=== PATIENT | female | born 1945 | race Caucasian/White ===

== ENCOUNTER 2018-12-12 12:24 | Observation (INO) | payer OTHER, BC ==
[2018-12-12 12:32] VITALS: BMI 22.7
--- NOTE | 2018-12-12 12:40 | EKG ---
Test Reason : Blood Pressure : / mmHG Vent. Rate : 062 BPM Atrial Rate : 062 BPM P-R Int : 162 ms QRS Dur : 090 ms QT Int : 376 ms P-R-T Axes : 026 057 053 degrees QTc Int : 381 ms NORMAL SINUS RHYTHM VOLTAGE CRITERIA FOR LEFT VENTRICULAR HYPERTROPHY ABNORMAL ECG Confirmed by MD CARMEN, CALIXTO ([id number]) on 12/12/2018 12:40:06 PM Referred By: Confirmed By:CALIXTO MORALES MD
--- NOTE | 2018-12-12 13:45 | PDOC ---
History of Present Illness - General Chief Complaint: Lightheaded Stated Complaint: SENT BY PCP Time Seen by Provider: 12/12/18 13:45 History Source: Patient Exam Limitations: No Limitations - History of Present Illness Initial Comments: 73 yo F w a pmh of HTN, HCL, Breast Ca s/p left mastectomy presents to the ER from [facility] because she has been having many high blood pressure readings and had an abnormal EKG at [facility]. here in the ER her EKG shows normal sinus with left ventricular hypertrophy changes. The patient's BP readings this morning have been 153/92 at 7 am, 160/92 at 9 am, and 157/86 at 10 am. She thinks this is abnormal for her. She has also been experiencing these dizzy spells for the past month which she describes as lightheadedness. She thinks they have been occurring more frequently of late. The patient also had a short transient episode of left neck discomfort when she checked into the ER which she is no longer experiencing. The patient endorses a tingling sensation in her left arm which she says began last night and has been on and off in frequency. PCP: Currently Dr. Wiseman at [facility] - switching over to Dr. bartlett at [facility] PSH: Left breast mastectomy Social Hx: Denies smoking, drinking, or other substance usage Allergies: NKDA, seasonal allergies to pollen Meds: Enalapril, atorvastatin, delma Past History - Past Medical History Allergies/Adverse Reactions: Allergies Allergy/AdvReac Type Severity Reaction Status Date / Time No Known Allergies Allergy Verified 12/12/18 12:31 Home Medications: Ambulatory Orders Atorvastatin Calcium [Lipitor] 20 mg PO HS 12/12/18 Enalapril Maleate [Vasotec] 20 mg PO DAILY 12/12/18 COPD: No HTN: Yes - Surgical History Cholecystectomy: No Lung Surgery: No - Immunization History Immunization Up to Date: No - Suicide/Smoking/Psychosocial Hx Smoking History: Never smoked Have you smoked in the past 12 months: No Information on smoking cessation initiated: No Hx Alcohol Use: No Drug/Substance Use Hx: No Review of Systems - Review of Systems Able to Perform ROS?: Yes Comments:: CONSTITUTIONAL: Absent: fever, no chills, no fatigue EYES: Absent: visual changes ENT: Absent: ear pain, no sore throat CARDIOVASCULAR: Absent: chest pain, no palpitations RESPIRATORY: Absent: cough, no SOB GI: Absent: abdominal pain, no nausea, no vomiting, no constipation, no diarrhea GENITOURINARY: Absent: dysuria, no frequency, no hematuria MUSKULOSKELETAL: Absent: back pain, no arthralgia, no myalgia SKIN: Absent: rash NEURO: Absent: headache *Physical Exam - Vital Signs Last Vital Signs Temp Pulse Resp BP Pulse Ox 98.2 F 74 16 122/56 L 96 12/12/18 12:28 12/12/18 12:28 12/12/18 12:28 12/12/18 12:28 12/12/18 12:28 - Physical Exam Comments: GENERAL: Well-appearing, well-nourished. No apparent distress. HEENT: Normocephalic, atraumatic. PERRL, EOM intact. CARDIOVASCULAR: Normal S1, S2. Regular rate and rhythm. PULMONARY: No evidence of respiratory distress. Lungs clear to auscultation bilaterally. No wheezing, rales or rhonchi. ABDOMEN: Soft, non-distended, non-tender. EXTREMITIES: 1 + edema in the ankles. Normal ROM in all four extremities. No gross deformities. SKIN: Warm, dry. No rash NEUROLOGICAL: No focal neurological deficits. ED Treatment Course - LABORATORY CBC & Chemistry Diagram: 12/12/18 14:18 12/12/18 14:18 - RADIOLOGY Radiograph Interpretation: Head CT: Scan of the head without intravenous contrast. There is gjkz-ew-nrszpcnf volume loss, ventricular dilatation and moderate to marked periventricular chronic microvascular ischemic disease changes, right more the left. No mass lesion , gross acute infarct or intracranial hemorrhage are identified. There is no shift of the midline structures.. The craniocervical junction appears unremarkable. Normal size pituitary gland. Visualized paranasal sinuses and mastoid air cells are well aerated. The calvarium is intact. Both orbits appear unremarkable IMPRESSION: Kcrz-vw-lnwjzeos volume with moderate to marked periventricular chronic microvascular ischemic disease changes, right more than left. No CT evidence of acute intracranial pathology is identified. Correlate clinically to determine further evaluation and follow-up. Medical Decision Making - Medical Decision Making 73 yo F w a pmh of HTN, HCL, Breast Ca s/p left mastectomy presents to the ER from [facility] because she has been having many high blood pressure readings and had an abnormal EKG at [facility]. here in the ER her EKG shows normal sinus with left ventricular hypertrophy changes. The patient's BP readings this morning have been 153/92 at 7 am, 160/92 at 9 am, and 157/86 at 10 am. She thinks this is abnormal for her. She has also been experiencing these dizzy spells for the past month which she describes as lightheadedness. She thinks they have been occurring more frequently of late. The patient also had a short transient episode of left neck discomfort when she checked into the ER which she is no longer experiencing. The patient endorses a tingling sensation in her left arm which she says began last night and has been on and off in frequency. VS: Diastolic hypotension, otherwise WNL. DDx IBNLT: CVA/TIA, ACS/ID, Arrhythmia, electrolyte/metabolic derangement, UTI. Plan: Labs, Urine, CXR, Head CT, IV hydration, re-assess. Labs and Urine: Unremarkable. CXR: Unremarkable Head CT: Scan of the head without intravenous contrast. There is mild-to- moderate volume loss, ventricular dilatation and moderate to marked periventricular chronic microvascular ischemic disease changes, right more the left. No mass lesion , gross acute infarct or intracranial hemorrhage are identified. There is no shift of the midline structures.. The craniocervical junction appears unremarkable. Normal size pituitary gland. Visualized paranasal sinuses and mastoid air cells are well aerated. The calvarium is intact. Both orbits appear unremarkable IMPRESSION: Hrvp-ny-mioblert volume with moderate to marked periventricular chronic microvascular ischemic disease changes, right more than left. No CT evidence of acute intracranial pathology is identified. Correlate clinically to determine further evaluation and follow-up. 12/12/18 16:41 Patient has likely been having chronic elevated BP and is starting to get end organ damage. Will admit to the hospital to have a more thorough cardio and neuro workup. *DC/Admit/Observation/Transfer Diagnosis at time of Disposition: Elevated blood pressure reading, Near syncope, LVH (left ventricular hypertrophy) - Discharge Dispostion Condition at time of disposition: Stable Decision to Admit order: Yes - Referrals - Patient Instructions - Post Discharge Activity
[2018-12-12] MEDS ORDERED: ASPIRIN 81 MG CHEWABLE TABLETS PO ONE (13:59)
[2018-12-12] MEDS ORDERED: SODIUM CHLORIDE 0.9% 500 ML INFUS.BAG IV ONE (14:03)
[2018-12-12 14:41] LABS: BASO % 0.9 % (0-2.0); HEMATOCRIT 42.3 % (32.4-45.2); HEMOGLOBIN 14.1 GM/dL (10.7-15.3); LYMPH % 27.7 % (8-40); MCH 30.7 pg (25.7-33.7); MCHC 33.3 g/dl (32.0-36.0); MEAN CELL VOLUME 92.3 fl (80-96); MEAN PLT VOLUME 7.1 fl (7.5-11.1); MONO % 4.8 % (3.8-10.2); NEUT % 64.6 % (42.8-82.8); PLATELET COUNT 240 K/MM3 (134-434); RBC 4.58 M/mm3 (3.60-5.2); RDW 13.3 % (11.6-15.6)
[2018-12-12 14:52] LABS: EPI CELLS 0.6 /HPF (0-5/HPF); PH,URINE 7.5 (5.0-8.0); URINE APPEARANCE CLEAR; URINE BACTERIA 75.2 /hpf (NEGATIVE); URINE BILIRUBIN NEGATIVE (NEGATIVE); URINE CASTS 0 /lpf (0-8); URINE COLOR YELLOW; URINE GLUCOSE (UA) NEGATIVE (NEGATIVE); URINE KETONE NEGATIVE (NEGATIVE); URINE LEUK ESTERASE TRACE (NEGATIVE); URINE NITRITE NEGATIVE (NEGATIVE); URINE PROTEIN NEGATIVE (NEGATIVE); URINE RBC 1 /hpf (0-4); URINE UROBILINOGEN 0.2 mg/dL (0.2-1.0); URINE WBC 2 /hpf (0-5)
[2018-12-12 14:53] LABS: INR 0.95 (0.83-1.09); PROTHROMBIN TIME (PATIENT) 11.2 SEC (9.7-13.0)
[2018-12-12 15:12] LABS: ALBUMIN 3.8 g/dl (3.4-5.0); ALK PHOS 42 U/L (45-117); ANION GAP 6 MMOL/L (8-16); BILIRUBIN,TOTAL 0.5 mg/dL (0.2-1); BLOOD UREA NITROGEN 12 mg/dL (7-18); CALCIUM 9.3 mg/dL (8.5-10.1); CHLORIDE 104 mmol/L (98-107); CO2 27 mmol/L (21-32); CREATININE 0.6 mg/dL (0.55-1.3); GLUCOSE,RANDOM 81 mg/dL (74-106); POTASSIUM 4.3 mmol/L (3.5-5.1); SGOT/AST 23 U/L (15-37); SGPT/ALT 24 U/L (13-61); SODIUM 137 mmol/L (136-145); TOT PROT 6.8 g/dl (6.4-8.2)
--- NOTE | 2018-12-12 15:44 | PDOC ---
Attending Attestation - Resident Resident Name: Pancho Gardner - ED Attending Attestation I have performed the following: I have examined & evaluated the patient, The case was reviewed & discussed with the resident, I agree w/resident's findings & plan - HPI HPI: 12/12/18 15:40 73y/o F h/o HTN p/w several complaints referred by new PCP: increasing forgetfulness and episodic light-headedness, occasion LUE/L neck pain. no JAQUEZ or CP. no cough/f/c. - Physicial Exam PE: 12/12/18 15:41 BP normal here, reportedly elevated to 160s at PCP office atraumatic, pleasant seated in chair perrl, eomi, neck supple s1s2 rrr, ctab, abd benign 1+ ankle edema b/l neuro nonfocal - Medical Decision Making 12/12/18 15:42 73-year-old female with history of hypertension presents with complaints of lightheadedness, increasing forgetfulness, intermittent left arm/neck pain. Here , exam is nonfocal but history could be suggestive of end organ injury from persistently elevated blood pressure CT head shows microvascular disease EKG shows LVH, K 4.3 Labs are otherwise within normal limits including creatinine and troponin Will admit for further neuro and cardiac workup, including echo, and blood pressure control Heart Score/ECG Review #1 ECG reviewed & interpreted by me at: 12:28 General ECG Interpretation: Sinus Rhythm, Normal Rate (62), Normal Intervals ( qtc 381, +LVH ? peaked T waves V3-V6), No acute ischemic changes Compared to previous ECG there are: Previous ECG unavail
[2018-12-12] MEDS ORDERED: ASPIRIN 81 MG CHEWABLE TABLETS ONE (16:22)
[2018-12-12] MEDS ORDERED: ACETAMINOPHEN 325 MG TABLET (FP) PO PRN (18:46)
--- NOTE | 2018-12-12 19:04 | HP ---
Admitting History and Physical - Primary Care Physician PCP: Cheikh - Admission Chief Complaint: Dizziness and elevated BPs History of Present Illness: 73 year old F with h/o Left breast ca s/p mastectomy, HTN and HLD presents to ED for evaluation due to intermittent episodes of dizziness w/o LOC, burning to LUE and loss of BP control over the last 3-4 weeks. Mrs. Rodríguez, reports dizziness described as "feeling unsteady on feet", denies blurred vision, speech deficits or motor and neuro deficits. She has noted increased episodes of forgetfulness, word finding and burning pain from shoulder down to wrist, no paresthesias or numbness reported. Patient denies chest pain, SOB, weight gain or edema. Today, 12/12, she presented to [facility] to meet new PCP, as she was switching from [facility] primary care clinics. Her BP at [facility] was 148/82mmHg and upon presenting to ED her BP was 122/56. Pt states, she was more concerned about her home BP readings this morning which were: 153/92 at 7 am, 160/92 at 9 am, and 157/86 at 10 am. In ED: Head CT : Fmbv-ba-nnmjeofl volume with moderate to marked periventricular chronic microvascular ischemic disease changes, right more than left. No CT evidence of acute intracranial pathology is identified. Correlate clinically to determine further evaluation and follow-up. Labs: WNL EKG: no ischemic Decision made to admit for further cards and neuro evaluation. History Source: Patient Limitations to Obtaining History: No Limitations - Past Medical History Cardiovascular: Yes: HTN, Hyperlipdemia Reproductive: Yes: Postmenopausal ENT: Yes: Allergic Rhinitis - Past Surgical History Past Surgical History: Yes: Mastectomy (Left breast) - Smoking History Smoking history: Never smoked Have you smoked in the past 12 months: No - Alcohol/Substance Use Hx Alcohol Use: No (1 glass of wine daily with dinner) History of Substance Use: reports: None - Social History Usual Living Arrangement: Yes: With Spouse ADL: Independent History of Recent Travel: No Home Medications - Allergies Allergies/Adverse Reactions: Allergies Allergy/AdvReac Type Severity Reaction Status Date / Time No Known Allergies Allergy Verified 12/12/18 12:31 - Home Medications Home Medications: Ambulatory Orders Atorvastatin Calcium [Lipitor] 20 mg PO HS 12/12/18 Enalapril Maleate [Vasotec] 20 mg PO DAILY 12/12/18 Family Disease History - Family Disease History Family History: Unable to Obtain Family Disease History: Other: Father ( (80+) natural causes), Mother ( (74) HTN), Brother ( (74) stomach cancer) Other Family History: Brother alive (82) DMII Review of Systems - Review of Systems Constitutional: reports: No Symptoms Eyes: reports: No Symptoms HENT: reports: No Symptoms Neck: reports: No Symptoms Cardiovascular: reports: No Symptoms Respiratory: reports: No Symptoms Gastrointestinal: reports: No Symptoms Genitourinary: reports: No Symptoms Breasts: reports: No Symptoms Reported Musculoskeletal: reports: No Symptoms, Other (LUE discomfort) Integumentary: reports: No Symptoms Neurological: reports: Dizziness, Other (memory loss) Endocrine: reports: No Symptoms Hematology/Lymphatic: reports: No Symptoms Psychiatric: reports: No Symptoms Physical Examination Vital Signs: Vital Signs Temperature 98.2 F 12/12/18 12:28 Pulse Rate 61 12/12/18 16:21 Respiratory Rate 18 12/12/18 16:21 Blood Pressure 138/65 12/12/18 16:21 O2 Sat by Pulse Oximetry (%) 99 12/12/18 16:21 Constitutional: Yes: Well Nourished, No Distress, Calm Eyes: Yes: Conjunctiva Clear, EOM Intact, PERRL HENT: Yes: Atraumatic, Normocephalic Neck: Yes: Supple, Trachea Midline Cardiovascular: Yes: Regular Rate and Rhythm Respiratory: Yes: Regular, CTA Bilaterally Gastrointestinal: Yes: Normal Bowel Sounds, Soft, Abdomen, Obese ...Rectal Exam: Yes: Deferred Musculoskeletal: Yes: WNL Extremities: Yes: WNL Edema: No Peripheral Pulses WNL: No Peripheral Pulses: Left Radial: 2+, Right Radial: 2+, Left Doralis Pedis: 2+, Right Dorsalis Pedis: 2+ Integumentary: Yes: WNL Neurological: Yes: Alert, Oriented ...Motor Strength: WNL Psychiatric: Yes: Alert, Oriented Labs: CBC, BMP 12/12/18 14:18 12/12/18 14:18 Imaging - Results Chest X-ray: Report Reviewed ( CXR 12/12/2018 2 views of the chest have been submitted. There is breast asymmetry indicative of possible left mastectomy. The lungs are clear. The mediastinum is not widened. The angles are sharp. The bones and soft tissues are intact. Correlation recommended. Reported By: Pito Dan MD) Cat Scan: Report Reviewed (Head CT IMPRESSION: Efyx-yo-nhzsuhyu volume with moderate to marked periventricular chronic microvascular ischemic disease changes, right more than left. No CT evidence of acute intracranial pathology is identified. Correlate clinically to determine further evaluation and follow- up.) EKG: Report Reviewed (EKG: NSR 62bpm, MARIA GUADALUPE 162ms, QT/QTc 376/381ms, LVH.) Problem List - Problems (1) HLD (hyperlipidemia) Assessment/Plan: continue lipitor cardiac diet pt may benefit from stress testing Code(s): E78.5 - HYPERLIPIDEMIA, UNSPECIFIED (2) Prophylactic measure Assessment/Plan: bowel regimen with senna/colace SC heparin TID OOB to chair ambulate as tolerated pt not taking ASA 81mg, would consider adding to home regimen Code(s): Z29.9 - ENCOUNTER FOR PROPHYLACTIC MEASURES, UNSPECIFIED (3) Elevated blood pressure reading Assessment/Plan: continue enalapril 20mg daily telemetry unit Code(s): R03.0 - ELEVATED BLOOD-PRESSURE READING, W/O DIAGNOSIS OF HTN (4) Dizziness Assessment/Plan: cardiology and neuro consulted echo ordered admit further evaluation Code(s): R42 - DIZZINESS AND GIDDINESS (5) Forgetfulness Assessment/Plan: pt can be evaluated for dementia on outpt basis Code(s): R68.89 - OTHER GENERAL SYMPTOMS AND SIGNS Assessment/Plan DISPO: home within 48hrs if neuro w/u negative Code status: Full Visit type - Emergency Visit Emergency Visit: Yes ED Registration Date: 12/12/18 Care time: The patient presented to the Emergency Department on the above date and was hospitalized for further evaluation of their emergent condition. - New Patient This patient is new to me today: Yes Date on this admission: 12/13/18 - Critical Care Critical Care patient: No
[2018-12-12] MEDS ORDERED: HEPARIN NA (PORCINE) 5,000 UNITS/ML 1ML VIAL ONE (20:11)
[2018-12-12] MEDS ORDERED: DOCUSATE SODIUM 100 MG CAPSULE (FP) PO ONE (20:11)
[2018-12-12] MEDS ORDERED: ATORVASTATIN CA 10 MG TABLET (FP) ONE (20:11)
--- NOTE | 2018-12-12 21:58 | CON.CARD ---
Consult Consult Specialty:: Cardiology - History of Present Illness History of Present Illness: 73 year old F with h/o LEft breast ca s/p mastectomy, HTN and HLD presents to ED for evaluation due to intermittent episodes of dizziness w/o LOC, burning to LUE and loss of BP control over the last 3-4 weeks. Mrs. Rodríguez, reports dizziness described as "feeling unsteady on feet", denies blurred vision, speech deficits or motor and neuro deficits. She has noted increased episodes of forgetfulness, word finding and burning pain from shoulder down to wrist, no paresthesias or numbness reported. PAtient denies chest pain, SOB, weight gain or edema. Today, 12/12, she presented to [facility] to meet new PCP, as she was switching from [facility] primary care clinics. Her BP at [facility] was 148/82mmHg and upon presenting to ED her BP was 122/56. Pt states, she was more concerned about her home BP readings this morning which were: 153/92 at 7 am, 160/92 at 9 am, and 157/86 at 10 am. In ED: Head CT : Jlkg-lu-pwmifoja volume with moderate to marked periventricular chronic microvascular ischemic disease changes, right more than left. No CT evidence of acute intracranial pathology is identified. Correlate clinically to determine further evaluation and follow-up. Labs: WNL EKG: no ischemic - Past Medical History Cardio/Vascular: Yes: HTN, Hyperlipdemia ENT: Yes: Allergic Rhinitis - Past Surgical History Past Surgical History: Yes: Mastectomy (Left breast) - Alcohol/Substance Use Hx Alcohol Use: No (1 glass of wine daily with dinner) History of Substance Use: reports: None - Smoking History Smoking history: Never smoked Have you smoked in the past 12 months: No - Social History ADL: Independent History of Recent Travel: No Home Medications - Allergies Allergies/Adverse Reactions: Allergies Allergy/AdvReac Type Severity Reaction Status Date / Time No Known Allergies Allergy Verified 12/12/18 12:31 - Home Medications Home Medications: Ambulatory Orders Atorvastatin Calcium [Lipitor] 20 mg PO HS 12/12/18 Enalapril Maleate [Vasotec] 20 mg PO DAILY 12/12/18 Family Disease History - Family Disease History Family Disease History: Other: Father ( (80+) natural causes), Mother ( (74) HTN), Brother ( (74) stomach cancer) Other Family History: Brother alive (82) DMII Review of Systems - Review of Systems Constitutional: reports: No Symptoms Eyes: reports: No Symptoms HENT: reports: No Symptoms Neck: reports: No Symptoms Cardiovascular: reports: Chest Pain Respiratory: reports: No Symptoms Gastrointestinal: reports: No Symptoms Genitourinary: reports: No Symptoms Breasts: reports: No Symptoms Reported Musculoskeletal: reports: No Symptoms Integumentary: reports: No Symptoms Neurological: reports: No Symptoms Endocrine: reports: No Symptoms Hematology/Lymphatic: reports: No Symptoms Psychiatric: reports: No Symptoms Vital Signs: Vital Signs Temperature 98.2 F 12/12/18 12:28 Pulse Rate 61 12/12/18 16:21 Respiratory Rate 18 12/12/18 16:21 Blood Pressure 138/65 12/12/18 16:21 O2 Sat by Pulse Oximetry (%) 99 12/12/18 16:21 Constitutional: Yes: Well Nourished, No Distress, Calm Eyes: Yes: WNL, Conjunctiva Clear, EOM Intact HENT: Yes: WNL, Atraumatic, Normocephalic Neck: Yes: WNL, Supple, Trachea Midline Respiratory: Yes: WNL, Regular, CTA Bilaterally Gastrointestinal: Yes: WNL, Normal Bowel Sounds Renal/: Yes: WNL Cardiovascular: Yes: WNL, Regular Rate and Rhythm Musculoskeletal: Yes: WNL Extremities: Yes: WNL Integumentary: Yes: WNL Neurological: Yes: WNL, Alert, Oriented ...Motor Strength: WNL Psychiatric: Yes: WNL, Alert, Oriented - Other Data Labs, Other Data: CBC, BMP 12/12/18 14:18 12/12/18 14:18 INR, PTT INR 0.95 (0.83-1.09) 12/12/18 14:18 Troponin, BNP 12/12/18 12/12/18 14:18 14:18 Troponin I < 0.02 B-Natriuretic Peptide 60.5 Troponin, BNP 12/12/18 12/12/18 14:18 14:18 Troponin I < 0.02 B-Natriuretic Peptide 60.5 Imaging - Results Chest X-ray: Image Reviewed (no i/e) EKG: Image Reviewed (sr lvh) Problem List - Problems (1) Dizziness Code(s): R42 - DIZZINESS AND GIDDINESS (2) Elevated blood pressure reading Code(s): R03.0 - ELEVATED BLOOD-PRESSURE READING, W/O DIAGNOSIS OF HTN (3) Forgetfulness Code(s): R68.89 - OTHER GENERAL SYMPTOMS AND SIGNS (4) HLD (hyperlipidemia) Code(s): E78.5 - HYPERLIPIDEMIA, UNSPECIFIED (5) LVH (left ventricular hypertrophy) Code(s): I51.7 - CARDIOMEGALY (6) Near syncope Code(s): R55 - SYNCOPE AND COLLAPSE (7) Prophylactic measure Code(s): Z29.9 - ENCOUNTER FOR PROPHYLACTIC MEASURES, UNSPECIFIED Assessment/Plan htn dizzines l sided cp - arm pain plan asa r/o mi telemetrty echo neuro eval will f/u
[2018-12-12] MEDS ORDERED: ATORVASTATIN CA 20 MG TABLET (FP) PO SCH (22:00)
[2018-12-12] MEDS ORDERED: SENNOSIDES 8.6MG TABLET (FP) PO SCH (22:00)
[2018-12-12] MEDS ORDERED: MELATONIN 5 MG TABLETS PO PRN (22:09)
[2018-12-12] MEDS: HEPARIN NA (PORCINE) 5,000 UNITS/ML 1ML VIAL SQ SCH (22:10)
[2018-12-12] MEDS: DOCUSATE SODIUM 100 MG CAPSULE (FP) PO SCH (22:10)
[2018-12-13] MEDS ORDERED: HEPARIN NA (PORCINE) 5,000 UNITS/ML 1ML VIAL ONE (06:08)
[2018-12-13] MEDS: HEPARIN NA (PORCINE) 5,000 UNITS/ML 1ML VIAL SQ SCH ×2 (06:15→16:01)
[2018-12-13 07:25] VITALS: TEMP 97.1
[2018-12-13 08:30] LABS: INR 0.97 (0.83-1.09); PROTHROMBIN TIME (PATIENT) 11.5 SEC (9.7-13.0)
[2018-12-13 08:32] LABS: ACTIVATED PTT 39.1 SECONDS (25.2-36.5)
[2018-12-13 08:46] LABS: ALBUMIN 3.4 g/dl (3.4-5.0); ALK PHOS 38 U/L (45-117); ANION GAP 6 MMOL/L (8-16); BILIRUBIN,TOTAL 0.6 mg/dL (0.2-1); BLOOD UREA NITROGEN 11 mg/dL (7-18); CALCIUM 8.9 mg/dL (8.5-10.1); CHLORIDE 110 mmol/L (98-107); CHOLESTEROL 135 mg/dL (50-200); CO2 26 mmol/L (21-32); CREATININE 0.6 mg/dL (0.55-1.3); GLUCOSE,RANDOM 83 mg/dL (74-106); HDL CHOLESTEROL 57 mg/dL (40-60); MAGNESIUM 2.1 mg/dL (1.8-2.4); PHOSPHOROUS 3.3 mg/dL (2.5-4.9); SGOT/AST 20 U/L (15-37); SGPT/ALT 19 U/L (13-61); SODIUM 142 mmol/L (136-145); TOT PROT 5.9 g/dl (6.4-8.2); TRIGLYCERIDES 79 mg/dL (0-150)
[2018-12-13] MEDS ORDERED: LISINOPRIL 10 MG TABLET (FP) PO SCH (10:00)
[2018-12-13] MEDS ORDERED: ENALAPRIL MALEATE 10 MG TABLET (FP) PO SCH (10:00)
[2018-12-13] MEDS: DOCUSATE SODIUM 100 MG CAPSULE (FP) PO SCH (11:00)
--- NOTE | 2018-12-13 12:34 | DS ---
Physical Examination Vital Signs: Vital Signs Temperature 97.1 F L 12/13/18 07:24 Pulse Rate 70 12/13/18 11:00 Respiratory Rate 20 12/13/18 11:00 Blood Pressure 134/63 12/13/18 11:00 O2 Sat by Pulse Oximetry (%) 96 12/13/18 11:00 Constitutional: Yes: Well Nourished, No Distress, Calm Eyes: Yes: Conjunctiva Clear, EOM Intact HENT: Yes: Atraumatic, Normocephalic Neck: Yes: Supple, Trachea Midline Cardiovascular: Yes: Regular Rate and Rhythm Respiratory: Yes: Regular, CTA Bilaterally Gastrointestinal: Yes: Normal Bowel Sounds, Soft ...Rectal Exam: Yes: Deferred Breast(s): Yes: WNL Musculoskeletal: Yes: WNL Extremities: Yes: WNL Edema: No Peripheral Pulses WNL: Yes Peripheral Pulses: Left Radial: 2+, Right Radial: 2+, Left Doralis Pedis: 2+, Right Dorsalis Pedis: 2+ Integumentary: Yes: WNL Neurological: Yes: Alert, Oriented ...Motor Strength: WNL Psychiatric: Yes: Alert, Oriented Labs: CBC, BMP 12/12/18 14:18 12/13/18 07:45 Discharge Summary Reason For Visit: ELEVATED BLOOD PRESSURE READING/LEFT VENTRICULAR Current Active Problems Dizziness (Acute) Elevated blood pressure reading (Acute) Forgetfulness (Acute) HLD (hyperlipidemia) (Acute) LVH (left ventricular hypertrophy) (Acute) Near syncope (Acute) Prophylactic measure (Acute) Procedures: Principal: head CT 12/12/2018. IMPRESSION: [id number] volume with moderate to marked periventricular chronic microvascular ischemic. disease changes, right more than left. No CT evidence of acute intracranial pathology is identified. Correlate clinically to determine further evaluation and follow-up. Reported By: Armando Barger MD 12/12/18 1537. . CXR 12/12/2018 There is breast asymmetry indicative of possible left mastectomy. The lungs are clear. The mediastinum is not widened. The angles are sharp. Bones and soft tissues are intact. Read by Dr. Pito Dan Other Procedures: ECHO: 12/13/2018. Impression: LV size, thickess and function are normal. LV EF and wall motion are normal. mild to moderate TR. RV systolic pressure is normal. trace to mild mitral regurg. E/A reversal consistent with but not diagnostic of poor LV compliance. Read by MD Sixto Khan. stress test 12/13/2018 official report pending. Unofficial report: no evidence of ischemic disease Hospital Course: 73 year old F with h/o Left breast ca s/p mastectomy, HTN and HLD presents to ED for evaluation due to intermittent episodes of dizziness w/o LOC, burning to LUE and loss of BP control over the last 3-4 weeks. Mrs. Rodríguez, reports dizziness described as "feeling unsteady on feet", denies blurred vision, speech deficits or motor and neuro deficits. She has noted increased episodes of forgetfulness, word finding and burning pain from shoulder down to wrist, no paresthesias or numbness reported. Patient denies chest pain, SOB, weight gain or edema. Today, 12/12, she presented to [facility] to meet new PCP, as she was switching from [facility] primary care clinics. Her BP at [facility] was 148/82mmHg and upon presenting to ED her BP was 122/56. Pt states, she was more concerned about her home BP readings this morning which were: 153/92 at 7 am, 160/92 at 9 am, and 157/86 at 10 am. In ED: Head CT : [id number] volume with moderate to marked periventricular chronic microvascular ischemic disease changes, right more than left. No CT evidence of acute intracranial pathology is identified. Correlate clinically to determine further evaluation and follow-up. Labs: WNL EKG: no ischemic Decision made to admit for further cards evaluation, with planned outpatient follow up. Patient underwent Echocardiogram and nuclear stress test which were both normal. Pt discharged home to follow up with primary care. She is scheduled to see Dr. Rodriguez (Neurologist) Condition: Stable - Instructions Diet, Activity, Other Instructions: FOLLOW UP APPOINTMENTS: Jan 13 2019 3:30pm DR. Robert Rodriguez MD 4 [facility], [address] [place] [address] OR please bring the following items 1. Medication List 2. Discharge papers 3. Photo ID 4. Insurance Cards PATIENT EDUCATION INFO: Dizziness is a term used to describe a range of sensations, such as feeling faint, woozy, weak or unsteady. Dizziness that creates the false sense that you or your surroundings are spinning or moving is called vertigo. Dizziness is one of the more common reasons adults visit their doctors. Frequent dizzy spells or constant dizziness can significantly affect your life. But dizziness rarely signals a life-threatening condition. Treatment of dizziness depends on the cause and your symptoms. It's usually effective, but the problem may recur. Symptoms People experiencing dizziness may describe it as any of a number of sensations, such as: A false sense of motion or spinning (vertigo) Lightheadedness or feeling faint Unsteadiness or a loss of balance A feeling of floating, wooziness or heavy-headedness These feelings may be triggered or worsened by walking, standing up or moving your head. Your dizziness may be accompanied by nausea or be so sudden or severe that you need to sit or lie down. The episode may last seconds or days and may recur. When to see a doctor Generally, see your doctor if you experience any recurrent, sudden, severe, or prolonged and unexplained dizziness or vertigo. Get emergency medical care if you experience new, severe dizziness or vertigo along with any of the following: Sudden, severe headache Chest pain Difficulty breathing Numbness or paralysis of arms or legs Fainting Double vision Rapid or irregular heartbeat Confusion or slurred speech Stumbling or difficulty walking Ongoing vomiting Seizures A sudden change in hearing Facial numbness or weakness Referrals: Robert Rodriguez MD [Staff Physician] - Disposition: HOME - Home Medications Comprehensive Discharge Medication List: Ambulatory Orders Atorvastatin Calcium [Lipitor] 20 mg PO HS 12/12/18 Enalapril Maleate [Vasotec] 20 mg PO DAILY 12/12/18 This patient is new to me today: No Emergency Visit: Yes ED Registration Date: 12/12/18 Care time: The patient presented to the Emergency Department on the above date and was hospitalized for further evaluation of their emergent condition. Critical Care patient: No - Discharge Referral Referred to [facility] No
--- NOTE | 2018-12-13 12:36 | ECHO ---
Name: KELLEY GALEANA Exam:Adult Echocardiogram Study Date: 12/13/2018 09:04 AM Age: 73 yrs Reason For Study: LVH Height: 67 in Weight: 145 lb BSA: 1.8 m2 MMode/2D Measurements & Calculations IVSd: 0.83 cm Ao root diam: 2.6 cm LVIDd: 4.2 cm LA dimension: 3.1 cm LVIDs: 3.0 cm LVPWd: 0.77 cm EDV(Teich): 78.5 ml LVOT diam: 2.0 cm ESV(Teich): 35.8 ml Doppler Measurements & Calculations MV E max damian: 34.6 cm/sec Ao V2 max: 117.3 cm/sec MV A max damian: 67.9 cm/sec Ao max P.5 mmHg MV E/A: 0.51 Ao V2 mean: 77.2 cm/sec Ao mean P.8 mmHg Ao V2 VTI: 23.4 cm JESSICA(I,D): 2.2 cm2 JESSICA(V,D): 1.9 cm2 LV V1 max P.1 mmHg MR max damian: 328.5 cm/sec LV V1 mean P.1 mmHg MR max P.2 mmHg LV V1 max: 72.2 cm/sec LV V1 mean: 50.7 cm/sec LV V1 VTI: 16.6 cm SV(LVOT): 52.1 ml TR max damian: 168.3 cm/sec TR max P.3 mmHg Med Peak E' Damian: 6.6 cm/sec Med E/e': 5.2 Lat Peak E' Damian: 10.8 cm/sec Lat E/e': 3.2 Procedure A two-dimensional transthoracic echocardiogram with color flow and Doppler was performed. Left Ventricle The left ventricular size, thickness and function are normal. The left ventricular ejection fraction is normal. E/A reversal consistent with but not diagnostic of poor LV compliance. The left ventricular w all motion is normal. Right Ventricle The right ventricle is normal in size and function. Atria Normal left and right atrial size and function. Mitral Valve There is mild mitral valve thickening. There is no mitral valve stenosis. There is trace to mild mitr al regurgitation. Tricuspid Valve There is mild tricuspid valve thickening. There is no tricuspid stenosis. There is mild to moderate t ricuspid regurgitation. Right ventricular systolic pressure is normal. Aortic Valve The prosthetic aortic valve is not well visualized. No hemodynamically significant valvular aortic st enosis. No aortic regurgitation is present. Pulmonic Valve The pulmonic valve is not well visualized. Great Vessels The aortic root is normal size. Pericardium/Pleura There is no pericardial effusion. Interpretation Summary The left ventricular size, thickness and function are normal The left ventricular ejection fraction is normal. The left ventricular wall motion is normal. There is mild to moderate tricuspid regurgitation. Right ventricular systolic pressure is normal. There is trace to mild mitral regurgitation. E/A reversal consistent with but not diagnostic of poor LV compliance MD Sixto Khan 12/13/2018 12:36 PM
--- NOTE | 2018-12-13 12:40 | PN ---
Progress Note, Physician History of Present Illness: 73 year old F with h/o LEft breast ca s/p mastectomy, HTN and HLD presents to ED for evaluation due to intermittent episodes of dizziness w/o LOC, burning to LUE and loss of BP control over the last 3-4 weeks. Mrs. Rodríguez, reports dizziness described as "feeling unsteady on feet", denies blurred vision, speech deficits or motor and neuro deficits. She has noted increased episodes of forgetfulness, word finding and burning pain from shoulder down to wrist, no paresthesias or numbness reported. PAtient denies chest pain, SOB, weight gain or edema. Today, 12/12, she presented to [facility] to meet new PCP, as she was switching from [facility] primary care clinics. Her BP at [facility] was 148/82mmHg and upon presenting to ED her BP was 122/56. Pt states, she was more concerned about her home BP readings this morning which were: 153/92 at 7 am, 160/92 at 9 am, and 157/86 at 10 am. In ED: Head CT : Itbk-bz-cibwdhve volume with moderate to marked periventricular chronic microvascular ischemic disease changes, right more than left. No CT evidence of acute intracranial pathology is identified. Correlate clinically to determine further evaluation and follow-up. Labs: WNL EKG: no ischemic - Current Medication List Current Medications: Active Medications Acetaminophen (Tylenol -) 650 mg PO Q6H PRN PRN Reason: MILD PAIN Atorvastatin Calcium (Lipitor -) 20 mg PO HS [facility] Last Admin: 12/12/18 22:10 Dose: 20 mg Docusate Sodium (Colace -) 100 mg PO BID [facility] Last Admin: 12/13/18 11:00 Dose: 100 mg Enalapril Maleate (Vasotec -) 20 mg PO DAILY [facility] Last Admin: 12/13/18 11:00 Dose: 20 mg Heparin Sodium (Porcine) (Heparin -) 5,000 unit SQ TID [facility] Last Admin: 12/13/18 06:15 Dose: 5,000 unit Melatonin (Melatonin) 5 mg PO HS PRN PRN Reason: INSOMNIA Last Admin: 12/12/18 23:10 Dose: 5 mg Senna (Senna -) 1 tab PO HS [facility] Last Admin: 12/12/18 23:10 Dose: 1 tab - Objective Vital Signs: Vital Signs Temperature 97.1 F L 12/13/18 07:24 Pulse Rate 70 12/13/18 11:00 Respiratory Rate 20 12/13/18 11:00 Blood Pressure 134/63 12/13/18 11:00 O2 Sat by Pulse Oximetry (%) 96 12/13/18 11:00 Eyes: Yes: WNL, Conjunctiva Clear, EOM Intact HENT: Yes: WNL, Atraumatic, Normocephalic Neck: Yes: WNL, Supple, Trachea Midline Cardiovascular: Yes: WNL, Regular Rate and Rhythm Respiratory: Yes: WNL, Regular, CTA Bilaterally Gastrointestinal: Yes: WNL, Normal Bowel Sounds Genitourinary: Yes: WNL Musculoskeletal: Yes: WNL Extremities: Yes: WNL Edema: No Integumentary: Yes: WNL Neurological: Yes: WNL, Alert, Oriented ...Motor Strength: WNL Psychiatric: Yes: WNL Labs: CBC, BMP 12/12/18 14:18 12/13/18 07:45 INR, PTT INR 0.97 (0.83-1.09) 12/13/18 07:45 Laboratory Tests 12/12/18 12/12/18 12/12/18 14:18 14:18 14:18 WBC 6.0 RBC 4.58 Hgb 14.1 Hct 42.3 MCV 92.3 MCH 30.7 MCHC 33.3 RDW 13.3 Plt Count 240 MPV 7.1 L Absolute Neuts (auto) 3.9 Neutrophils % 64.6 Lymphocytes % 27.7 Monocytes % 4.8 Eosinophils % 2.0 Basophils % 0.9 Nucleated RBC % 0 PT with INR 11.20 INR 0.95 PTT (Actin FS) Sodium Potassium Chloride Carbon Dioxide Anion Gap BUN Creatinine Creat Clearance w eGFR Random Glucose Hemoglobin A1c % Calcium Phosphorus Magnesium Total Bilirubin AST ALT Alkaline Phosphatase Creatine Kinase Troponin I B-Natriuretic Peptide Total Protein Albumin Triglycerides Cholesterol Total LDL Cholesterol HDL Cholesterol TSH Free T4 Urine Color Yellow Urine Appearance Clear Urine pH 7.5 Ur Specific [place] 1.008 L Urine Protein Negative Urine Glucose (UA) Negative Urine Ketones Negative Urine Blood Negative Urine Nitrite Negative Urine Bilirubin Negative Urine Urobilinogen 0.2 Ur Leukocyte Esterase Trace Urine WBC (Auto) 2 Urine RBC (Auto) 1 Urine Casts (Auto) 0 U Epithel Cells (Auto) 0.6 Urine Bacteria (Auto) 75.2 Blood Type Antibody Screen 04/23/19 04/23/19 04/23/19 14:18 14:18 14:18 WBC RBC Hgb Hct MCV MCH MCHC RDW Plt Count MPV Absolute Neuts (auto) Neutrophils % Lymphocytes % Monocytes % Eosinophils % Basophils % Nucleated RBC % PT with INR INR PTT (Actin FS) Sodium 137 Potassium 4.3 Chloride 104 Carbon Dioxide 27 Anion Gap 6 L BUN 12 Creatinine 0.6 Creat Clearance w eGFR 97.99 Random Glucose 81 Hemoglobin A1c % Calcium 9.3 Phosphorus Magnesium Total Bilirubin 0.5 AST 23 ALT 24 Alkaline Phosphatase 42 L Creatine Kinase 83 Troponin I < 0.02 B-Natriuretic Peptide 60.5 Total Protein 6.8 Albumin 3.8 Triglycerides Cholesterol Total LDL Cholesterol HDL Cholesterol TSH Free T4 Urine Color Urine Appearance Urine pH Ur Specific [place] Urine Protein Urine Glucose (UA) Urine Ketones Urine Blood Urine Nitrite Urine Bilirubin Urine Urobilinogen Ur Leukocyte Esterase Urine WBC (Auto) Urine RBC (Auto) Urine Casts (Auto) U Epithel Cells (Auto) Urine Bacteria (Auto) Blood Type A POSITIVE Antibody Screen Negative 12/12/18 12/13/18 12/13/18 19:30 07:45 07:45 WBC RBC Hgb Hct MCV MCH MCHC RDW Plt Count MPV Absolute Neuts (auto) Neutrophils % Lymphocytes % Monocytes % Eosinophils % Basophils % Nucleated RBC % PT with INR 11.50 INR 0.97 PTT (Actin FS) 39.1 H Sodium 142 Potassium 4.0 Chloride 110 H Carbon Dioxide 26 Anion Gap 6 L BUN 11 Creatinine 0.6 Creat Clearance w eGFR 97.99 Random Glucose 83 Hemoglobin A1c % Calcium 8.9 Phosphorus 3.3 Magnesium 2.1 Total Bilirubin 0.6 AST 20 ALT 19 Alkaline Phosphatase 38 L Creatine Kinase 60 Troponin I < 0.02 B-Natriuretic Peptide Total Protein 5.9 L Albumin 3.4 Triglycerides 79 Cholesterol 135 Total LDL Cholesterol 73 HDL Cholesterol 57 TSH 2.28 Free T4 Urine Color Urine Appearance Urine pH Ur Specific [place] Urine Protein Urine Glucose (UA) Urine Ketones Urine Blood Urine Nitrite Urine Bilirubin Urine Urobilinogen Ur Leukocyte Esterase Urine WBC (Auto) Urine RBC (Auto) Urine Casts (Auto) U Epithel Cells (Auto) Urine Bacteria (Auto) Blood Type A POSITIVE Antibody Screen 12/13/18 12/13/18 07:45 07:45 WBC RBC Hgb Hct MCV MCH MCHC RDW Plt Count MPV Absolute Neuts (auto) Neutrophils % Lymphocytes % Monocytes % Eosinophils % Basophils % Nucleated RBC % PT with INR INR PTT (Actin FS) Sodium Potassium Chloride Carbon Dioxide Anion Gap BUN Creatinine Creat Clearance w eGFR Random Glucose Hemoglobin A1c % 5.2 Calcium Phosphorus Magnesium Total Bilirubin AST ALT Alkaline Phosphatase Creatine Kinase Troponin I B-Natriuretic Peptide Total Protein Albumin Triglycerides Cholesterol Total LDL Cholesterol HDL Cholesterol TSH Free T4 1.05 Urine Color Urine Appearance Urine pH Ur Specific [place] Urine Protein Urine Glucose (UA) Urine Ketones Urine Blood Urine Nitrite Urine Bilirubin Urine Urobilinogen Ur Leukocyte Esterase Urine WBC (Auto) Urine RBC (Auto) Urine Casts (Auto) U Epithel Cells (Auto) Urine Bacteria (Auto) Blood Type Antibody Screen Problem List - Problems (1) Dizziness Code(s): R42 - DIZZINESS AND GIDDINESS (2) Elevated blood pressure reading Code(s): R03.0 - ELEVATED BLOOD-PRESSURE READING, W/O DIAGNOSIS OF HTN (3) Forgetfulness Code(s): R68.89 - OTHER GENERAL SYMPTOMS AND SIGNS (4) HLD (hyperlipidemia) Code(s): E78.5 - HYPERLIPIDEMIA, UNSPECIFIED (5) LVH (left ventricular hypertrophy) Code(s): I51.7 - CARDIOMEGALY (6) Near syncope Code(s): R55 - SYNCOPE AND COLLAPSE (7) Prophylactic measure Code(s): Z29.9 - ENCOUNTER FOR PROPHYLACTIC MEASURES, UNSPECIFIED Assessment/Plan htn dizzines l sided cp - arm pain echo nl ef plan MIBI stress test for risk stratification as inpatient.
[2018-12-13] MEDS ORDERED: metoPROLOL SUCCINATE 25 MG TAB.SR.24H (FP) PO SCH (15:45)
--- NOTE | 2018-12-13 16:40 | PN ---
Physical Exam: SUBJECTIVE: Patient seen and examined Patient signing out AMA after positive stress testing - she does not want to undergo cardiac cath at this point in time and would like a second opinion OBJECTIVE: Vital Signs Period Temp Pulse Resp BP Sys/Gonzalez Pulse Ox Last 24 Hr 97.1 F 66-70 20 126-134/63-65 96-98 Constitutional: Yes: Well Nourished, No Distress, Calm Eyes: Yes: Conjunctiva Clear, EOM Intact HENT: Yes: Atraumatic, Normocephalic Neck: Yes: Supple, Trachea Midline Cardiovascular: Yes: Regular Rate and Rhythm Respiratory: Yes: Regular, CTA Bilaterally Gastrointestinal: Yes: Normal Bowel Sounds, Soft ...Rectal Exam: Yes: Deferred Breast(s): Yes: WNL Musculoskeletal: Yes: WNL Extremities: Yes: WNL Edema: No Peripheral Pulses WNL: Yes Peripheral Pulses: Left Radial: 2+, Right Radial: 2+, Left Doralis Pedis: 2+, Right Dorsalis Pedis: 2+ Integumentary: Yes: WNL Neurological: Yes: Alert, Oriented ...Motor Strength: WNL Psychiatric: Yes: Alert, Oriented Laboratory Results - last 24 hr 12/12/18 12/13/18 12/13/18 19:30 07:45 07:45 PT with INR 11.50 INR 0.97 PTT (Actin FS) 39.1 H Sodium 142 Potassium 4.0 Chloride 110 H Carbon Dioxide 26 Anion Gap 6 L BUN 11 Creatinine 0.6 Creat Clearance w eGFR 97.99 Random Glucose 83 Hemoglobin A1c % Calcium 8.9 Phosphorus 3.3 Magnesium 2.1 Total Bilirubin 0.6 AST 20 ALT 19 Alkaline Phosphatase 38 L Creatine Kinase 60 Troponin I < 0.02 Total Protein 5.9 L Albumin 3.4 Triglycerides 79 Cholesterol 135 Total LDL Cholesterol 73 HDL Cholesterol 57 TSH 2.28 Free T4 Blood Type A POSITIVE 12/13/18 12/13/18 07:45 07:45 PT with INR INR PTT (Actin FS) Sodium Potassium Chloride Carbon Dioxide Anion Gap BUN Creatinine Creat Clearance w eGFR Random Glucose Hemoglobin A1c % 5.2 Calcium Phosphorus Magnesium Total Bilirubin AST ALT Alkaline Phosphatase Creatine Kinase Troponin I Total Protein Albumin Triglycerides Cholesterol Total LDL Cholesterol HDL Cholesterol TSH Free T4 1.05 Blood Type Active Medications Generic Name Dose Route Start Last Admin Trade Name Freq PRN Reason Stop Dose Admin Acetaminophen 650 mg 12/12/18 18:46 Tylenol - PO Q6H PRN MILD PAIN Atorvastatin Calcium 20 mg 12/12/18 22:00 12/12/18 22:10 Lipitor - PO 20 mg HS STEPH Administration Docusate Sodium 100 mg 12/12/18 22:00 12/13/18 11:00 Colace - PO 100 mg BID STEPH Administration Enalapril Maleate 20 mg 12/13/18 10:00 12/13/18 11:00 Vasotec - PO 20 mg DAILY [facility] Administration Heparin Sodium (Porcine) 5,000 unit 12/12/18 21:00 12/13/18 16:01 Heparin - SQ 5,000 unit TID [facility] Administration Melatonin 5 mg 12/12/18 22:09 12/12/18 23:10 Melatonin PO 5 mg HS PRN Administration INSOMNIA Metoprolol Succinate 12.5 mg 12/13/18 15:45 Toprol Xl - PO DAILY STEPH Senna 1 tab 12/12/18 22:00 12/12/18 23:10 Senna - PO 1 tab HS [facility] Administration Procedures: head CT 12/12/2018. IMPRESSION: Cejh-nn-elisemsg volume with moderate to marked periventricular chronic microvascular ischemic. disease changes, right more than left. No CT evidence of acute intracranial pathology is identified. Correlate clinically to determine further evaluation and follow-up. Reported By : Armando Barger MD 12/12/18 1537. . CXR 12/12/2018 There is breast asymmetry indicative of possible left mastectomy. The lungs are clear. The mediastinum is not widened. The angles are sharp. Bones and soft tissues are intact. Read by Dr. Pito Dan Other Procedures: ECHO: 12/13/2018. Impression: LV size, thickess and function are normal. LV EF and wall motion are normal. mild to moderate TR. RV systolic pressure is normal. trace to mild mitral regurg. E/A reversal consistent with but not diagnostic of poor LV compliance. Read by MD Sixto Khan. stress test 12/13/2018 official report pending. Unofficial report: no evidence of ischemic disease Hospital Course: 73 year old F with h/o Left breast ca s/p mastectomy, HTN and HLD presents to ED for evaluation due to intermittent episodes of dizziness w/o LOC, burning to LUE and loss of BP control over the last 3-4 weeks. Mrs. Rodríguez, reports dizziness described as "feeling unsteady on feet", denies blurred vision, speech deficits or motor and neuro deficits. She has noted increased episodes of forgetfulness, word finding and burning pain from shoulder down to wrist, no paresthesias or numbness reported. Patient denies chest pain, SOB, weight gain or edema. Today, 12/12, she presented to [facility] to meet new PCP, as she was switching from [facility] primary care clinics. Her BP at [facility] was 148/82mmHg and upon presenting to ED her BP was 122/56. Pt states, she was more concerned about her home BP readings this morning which were: 153/92 at 7 am, 160/92 at 9 am, and 157/86 at 10 am. In ED: Head CT : Urpr-xt-emgktstu volume with moderate to marked periventricular chronic microvascular ischemic disease changes, right more than left. No CT evidence of acute intracranial pathology is identified. Correlate clinically to determine further evaluation and follow-up. Labs: WNL EKG: no ischemic Decision made to admit for further cards evaluation, with planned outpatient follow up. Patient underwent Echocardiogram on 12/13/18 which was normal. She also had stress test on 12/13 which revealed moderate sized mild intensity inferior and septal reversible perfusion defect consistent with ischemia. EF 56% . (copy of report given to patient). Pt was encouraged to transfer care to [facility] for cardiac cath. Pt opposed to this recommendation due to feeling "rushed " and decided to sign out AMA. Pt encouraged to add Aspirin and BB to medication regimen. Rx sent to pharmacy. Problem List - Problems (1) HLD (hyperlipidemia) Code(s): E78.5 - HYPERLIPIDEMIA, UNSPECIFIED (2) Prophylactic measure Code(s): Z29.9 - ENCOUNTER FOR PROPHYLACTIC MEASURES, UNSPECIFIED (3) Elevated blood pressure reading Code(s): R03.0 - ELEVATED BLOOD-PRESSURE READING, W/O DIAGNOSIS OF HTN (4) Dizziness Code(s): R42 - DIZZINESS AND GIDDINESS (5) Forgetfulness Code(s): R68.89 - OTHER GENERAL SYMPTOMS AND SIGNS Visit type - Emergency Visit Emergency Visit: Yes ED Registration Date: 12/12/18 Care time: The patient presented to the Emergency Department on the above date and was hospitalized for further evaluation of their emergent condition. - New Patient This patient is new to me today: No - Critical Care Critical Care patient: No - Discharge Referral Referred to [facility] Med P.C.: No
[2018-12-13 20:08] VITALS: BP 152/86; PULSE 80
--- NOTE | 2018-12-14 12:08 | EKG ---
Test Reason : Blood Pressure : / mmHG Vent. Rate : 068 BPM Atrial Rate : 068 BPM P-R Int : 156 ms QRS Dur : 092 ms QT Int : 358 ms P-R-T Axes : 012 068 063 degrees QTc Int : 380 ms NORMAL SINUS RHYTHM VOLTAGE CRITERIA FOR LEFT VENTRICULAR HYPERTROPHY ABNORMAL ECG WHEN COMPARED WITH ECG OF 12-DEC-2018 12:28, NO SIGNIFICANT CHANGE WAS FOUND Confirmed by GRETCHEN HARDIN, BILLIE ([id number]) on 12/14/2018 12:08:32 PM Referred By: RASHMI GORE Confirmed By:BILLIE GODINEZ MD
== END 2018-12-13 17:11 | disposition home or self-care (01) ==
LOC: JER 12:24 → JERBED 16:44
PROVIDERS: ATTEND Nurse Practitioner Family
PROC: 3E0337Z Introduction of Electrolytic and Water Balance Substance into Peripheral Vein, Percutaneous Approach (ICD-10-PCS; principal; 2018-12-12)
PROC: 3E013GC Introduction of Other Therapeutic Substance into Subcutaneous Tissue, Percutaneous Approach (ICD-10-PCS; 2018-12-12)
DX: R03.0 Elevated blood-pressure reading, without diagnosis of hypertension (principal); I11.9 Hypertensive heart disease without heart failure; R55 Syncope and collapse; I51.7 Cardiomegaly; E78.5 Hyperlipidemia, unspecified; R42 Dizziness and giddiness; R68.89 Other general symptoms and signs; Z29.9 Encounter for prophylactic measures, unspecified; Z85.3 Personal history of malignant neoplasm of breast; Z90.12 Acquired absence of left breast and nipple
CPT/HCPCS: 36415; 70450-TC; 71046-TC-FY; 78452-TC; 80053; 80061; 81003; 82550; 83036; 83721; 83735; 83880; 84100; 84436; 84439; 84443; 84484; 85025; 85610; 85730; 86850; 86900; 86901; 93005; 93010; 93017; 93306-TC; 96372; 99284-25; A9502; G0378; J1644